=== PATIENT | male | born 1970 | race Two or more races ===

== ENCOUNTER 2023-07-28 13:24 | Emergency (ER) | payer OTHER ==
[~2023-07-28] VITALS: Ht 172.7 cm; Wt 95.5 kg
[2023-07-28 13:27] VITALS: BP 138/91; PULSE 84; RESP 16; TEMP 97.9; O2SAT 97
[2023-07-28] MEDS ORDERED: robaxin (13:27)
[2023-07-28] MEDS ORDERED: albuterol (13:27)
== END 2023-07-28 14:08 | disposition left against medical advice (07) ==
LOC: ER 13:24
DX: R06.89 Other abnormalities of breathing (principal); F41.9 Anxiety disorder, unspecified; I11.0 Hypertensive heart disease with heart failure; I50.9 Heart failure, unspecified; I25.2 Old myocardial infarction; F20.9 Schizophrenia, unspecified; F17.200 Nicotine dependence, unspecified, uncomplicated; Z98.890 Other specified postprocedural states
CPT/HCPCS: 99283; 99406

== ENCOUNTER 2024-02-17 23:01 | Emergency (ER) | payer MEDICAID, OTHER ==
[~2024-02-17] VITALS: Ht 172.7 cm; Wt 91.0 kg
[~2024-02-17 23:01] MED LIST: AMLO10TA80 PO; ASPI-1406 PO; ATOR20TA65 PO; ISOS30TA91 PO; LISI20TA31 PO; METO-396 PO; QUET50TA23 PO; RISP3TAB76 PO
[2024-02-17 23:18] VITALS: O2SAT 95
[2024-02-17 23:38] LABS: BASOPHILS % 0.6 % (0.0-2.0); EOSINOPHILS % 1.1 % (0.0-5.0); HEMATOCRIT. 37.4 % (42.0-52.0); HEMOGLOBIN. 12.2 g/dL (14.0-18.0); LYMPHOCYTES % 12.2 % (20.0-50.0); MEAN CORPUSCULAR HGB CONC 32.7 g/dL (31.0-37.0); MEAN CORPUSCULAR VOLUME 82.4 fL (80.0-94.0); MEAN PLATELET VOLUME 8.3 fl (7.4-10.4); MONOCYTES % 6.4 % (2.0-8.0); NEUTROPHILS % 79.7 % (40.0-76.0); PLATELET 188 x1000/uL (130-400); RED BLOOD CELL COUNT 4.54 mill/uL (4.7-6.1); RED CELL DISTRIBUTION WIDTH 14.3 % (11.6-14.6)
[2024-02-17 23:45] LABS: CHLORIDE 111 mEq/L (98-107); POTASSIUM 3.6 mEq/L (3.5-5.1); SODIUM 142 mEq/L (136-145)
[2024-02-17 23:46] LABS: CARBON DIOXIDE 26 mEq/L (21-32)
[2024-02-17 23:47] LABS: CALCIUM 8.4 mg/dL (8.7-10.4)
[2024-02-17 23:51] LABS: CREATININE 0.9 mg/dL (0.6-1.3); GLUCOSE 103 mg/dL (70-105)
[2024-02-17 23:52] LABS: UREA NITROGEN BLOOD 13 mg/dL (9-23)
[2024-02-17 23:56] LABS: THYROID STIMULATING HORMONE 0.61 uIU/mL (0.55-4.78)
[2024-02-17] MEDS: SODIUM CHLORIDE 0.9% 1,000 ML IV ONE ×2 (23:58)
[2024-02-18 00:06] LABS: ETHANOL BLOOD < 10 mg/dL (<10)
[2024-02-18] MEDS: NALOXONE HCL 1MG/ML 2ML VIAL IV ONE (00:10)
[2024-02-18 02:40] LABS: BG BASE EXCESS -4.6 mmol/L (-2.0-2.0); BG CARBOXYHEMOGLOBIN 2.1 % (0.5-1.5); BG DEOXYHEMOGLOBIN 1.3 % (0.0-5.0); BG FRACTION INSPIRED OXYGEN 36; BG HCO3 ACT 21.1 mmol/L (22.0-26.0); BG METHEMOGLOBIN 0.3 % (0.0-1.5); BG OXYGEN SATURATION 98.7 % (92.0-98.5); BG OXYHEMOGLOBIN 96.3 % (94.0-97.0); BG PCO2 40.9 mmHg (35.0-45.0); BG PO2 123.4 mmHg (75.0-100.0); BG SAMPLE SITE RIGHT RADIAL; BG TOTAL HEMOGLOBIN 13.7 g/dL (12.0-18.0); BG VENT MODE NASAL CANNULA
[2024-02-18 03:20] LABS: CLARITY URINE CLEAR (CLEAR); COLOR URINE YELLOW (YELLOW); GLUCOSE URINE 3+ (NEGATIVE); KETONES URINE NEGATIVE (NEGATIVE); LEUKOCYTE ESTERASE URINE NEGATIVE (NEGATIVE); NITRITE URINE NEGATIVE (NEGATIVE); OCCULT BLOOD URINE NEGATIVE (NEGATIVE); PROTEIN URINE NEGATIVE (NEGATIVE); SPECIFIC GRAVITY URINE 1.015 (1.005-1.030); UROBILINOGEN URINE 0.2 E.U./dL (0.2-1.0)
[2024-02-18 03:21] LABS: *AMPHETAMINES SCREEN URINE PRESUMPTIVE POSITIVE (NEGATIVE); *BARBITURATES SCREEN URINE NEGATIVE (NEGATIVE); *BENZODIAZEPINES SCREEN URINE NEGATIVE (NEGATIVE); *COCAINE SCREEN URINE NEGATIVE (NEGATIVE); CANNABINOID URINE SCREEN NEGATIVE (NEGATIVE); ECSTASY MDMA SCREEN URINE NEGATIVE (NEGATIVE); METHADONE URINE SCREEN NEGATIVE (NEGATIVE); OPIATES URINE SCREEN NEGATIVE (NEGATIVE); PHENCYCLIDINE URINE SCREEN PRESUMTIVE POSITIVE (NEGATIVE)
[2024-02-18 03:43] LABS: BACTERIA URINE NONE SEEN; HYALINE CASTS URINE 0-5 /lpf; RBC URINE 0-2 /hpf (0-2); SQUAMOUS EPITHELIAL CELL URINE RARE /lpf (RARE/1+); WBC URINE 0-2 /hpf (0-2)
[2024-02-18 07:31] VITALS: BP 101/63; PULSE 83; RESP 16
== END 2024-02-18 08:08 | disposition home or self-care (01) ==
LOC: ER 23:01
DX: F19.10 Other psychoactive substance abuse, uncomplicated (principal); F14.90 Cocaine use, unspecified, uncomplicated; R51.9 Headache, unspecified
CPT/HCPCS: 80048; 80329; 80320; 83605; 84443; 85025; 36415; 82805; 82375; 93005; 96361; 96374; 99285; 36600; 80305; 81003; 71045; 70450; J2310; J7030; G0480

== ENCOUNTER 2024-08-06 22:07 | Emergency (ER) | payer MEDICAID ==
[~2024-08-06] VITALS: Ht 167.6 cm; Wt 120.0 kg
[2024-08-06 22:07] VITALS: O2SAT 98
[~2024-08-06 22:07] MED LIST changes: +AMI2 MT; -AMLO10TA80 PO; +APIX2.5T MT; +FAMO-135 MT; +FURO-151 MT; -ISOS30TA91 PO; -LISI20TA31 PO; +LOSA-412 MT; -METO-396 PO; -QUET50TA23 PO; -RISP3TAB76 PO; +SPIR25TA MT
[2024-08-06 22:09] VITALS: BP 146/92; PULSE 92; RESP 20; O2SAT 94
[2024-08-06 22:55] LABS: BASOPHILS % 0.6 % (0.0-2.0); EOSINOPHILS % 0.5 % (0.0-5.0); HEMATOCRIT. 41.1 % (42.0-52.0); LYMPHOCYTES % 15.3 % (20.0-50.0); MEAN CORPUSCULAR HGB CONC 31.7 g/dL (31.0-37.0); MEAN CORPUSCULAR VOLUME 85.4 fL (80.0-94.0); MEAN PLATELET VOLUME 9.3 fl (7.4-10.4); MONOCYTES % 8.2 % (2.0-8.0); NEUTROPHILS % 75.4 % (40.0-76.0); PLATELET 194 x1000/uL (130-400); RED BLOOD CELL COUNT 4.81 mill/uL (4.7-6.1); RED CELL DISTRIBUTION WIDTH 14.7 % (11.6-14.6); WHITE BLOOD COUNT 8.7 x1000/uL (4.5-11.0)
[2024-08-06 22:58] LABS: CHLORIDE 108 mEq/L (98-107); SODIUM 144 mEq/L (136-145)
[2024-08-06 22:59] LABS: CARBON DIOXIDE 29 mEq/L (21-32)
[2024-08-06 23:00] LABS: CALCIUM 9.6 mg/dL (8.7-10.4)
[2024-08-06 23:01] LABS: PROTHROMBIN TIME 11.4 sec (9.6-11.0)
[2024-08-06 23:04] LABS: CREATININE 1.4 mg/dL (0.6-1.3); GLUCOSE 92 mg/dL (70-105); UREA NITROGEN BLOOD 18 mg/dL (9-23)
[2024-08-06 23:05] LABS: TROPONIN I HIGH SENSITIVITY 45 ng/L (3.0-53)
[2024-08-06 23:06] LABS: ETHANOL BLOOD < 10 mg/dL (<10)
== END 2024-08-06 22:40 | disposition left against medical advice (07) ==
LOC: ER 22:07
DX: R07.9 Chest pain, unspecified (principal); E78.00 Pure hypercholesterolemia, unspecified; F17.200 Nicotine dependence, unspecified, uncomplicated; I11.0 Hypertensive heart disease with heart failure; I25.2 Old myocardial infarction; F10.90 Alcohol use, unspecified, uncomplicated; F15.99 Other stimulant use, unspecified with unspecified stimulant-induced disorder; I50.9 Heart failure, unspecified; Z59.01 Sheltered homelessness; Z79.01 Long term (current) use of anticoagulants; Z79.82 Long term (current) use of aspirin; Z79.899 Other long term (current) drug therapy; Y90.9 Presence of alcohol in blood, level not specified
CPT/HCPCS: 36415; 80048; 80320; 83880; 84484; 85025; 93005; 99284; G0480

== ENCOUNTER 2024-08-11 19:27 | Emergency (ER) | payer MEDICAID ==
[~2024-08-11] VITALS: Ht 177.8 cm; Wt 100.0 kg
[2024-08-11 19:32] VITALS: TEMP 98.6; O2SAT 93
[2024-08-11 20:30] LABS: BASOPHILS % 0.6 % (0.0-2.0); EOSINOPHILS % 1.1 % (0.0-5.0); HEMOGLOBIN. 12.5 g/dL (14.0-18.0); LYMPHOCYTES % 12.8 % (20.0-50.0); MEAN CORPUSCULAR HEMOGLOBIN 27.1 pg (28.0-32.0); MEAN CORPUSCULAR HGB CONC 31.9 g/dL (31.0-37.0); MEAN CORPUSCULAR VOLUME 84.7 fL (80.0-94.0); MEAN PLATELET VOLUME 8.7 fl (7.4-10.4); MONOCYTES % 7.2 % (2.0-8.0); NEUTROPHILS % 78.3 % (40.0-76.0); PLATELET 179 x1000/uL (130-400); RED BLOOD CELL COUNT 4.61 mill/uL (4.7-6.1); RED CELL DISTRIBUTION WIDTH 14.1 % (11.6-14.6); WHITE BLOOD COUNT 8.6 x1000/uL (4.5-11.0)
[2024-08-11 20:35] LABS: CHLORIDE 106 mEq/L (98-107); SODIUM 140 mEq/L (136-145)
[2024-08-11 20:36] LABS: CARBON DIOXIDE 30 mEq/L (21-32)
[2024-08-11 20:37] LABS: CALCIUM 9.2 mg/dL (8.7-10.4)
[2024-08-11 20:40] LABS: PARTIAL THROMBOPLASTIN TIME 26.8 sec (23.4-31.0); PROTHROMBIN TIME 11.4 sec (9.6-11.0)
[2024-08-11 20:41] LABS: GLUCOSE 114 mg/dL (70-105); UREA NITROGEN BLOOD 11 mg/dL (9-23)
[2024-08-11 20:42] VITALS: BP 127/81; PULSE 62; RESP 16; O2SAT 95
[2024-08-11 20:44] LABS: TROPONIN I HIGH SENSITIVITY 18 ng/L (3.0-53)
[2024-08-11] MEDS: ONDANSETRON HCL 4MG/2ML INJ IV ONE (21:39)
== END 2024-08-11 22:08 | disposition home or self-care (01) ==
LOC: ER 19:27 → EDBEDREQ 22:11 → EDBEDREQTM 22:11 → CANBEDREQ 08-12 00:35
DX: R07.9 Chest pain, unspecified (principal); I11.0 Hypertensive heart disease with heart failure; F19.10 Other psychoactive substance abuse, uncomplicated; I25.10 Atherosclerotic heart disease of native coronary artery without angina pectoris; I50.9 Heart failure, unspecified; J18.9 Pneumonia, unspecified organism; Z79.01 Long term (current) use of anticoagulants; Z79.82 Long term (current) use of aspirin; Z79.899 Other long term (current) drug therapy
CPT/HCPCS: 80048; 83880; 85025; 85610; 85730; 84484; 36415; 71045; 93005; 99291; Z7610

== ENCOUNTER 2024-08-30 13:09 | Emergency (ER) | payer MEDICAID ==
[~2024-08-30] VITALS: Ht 170.2 cm; Wt 80.0 kg
[2024-08-30 13:12] VITALS: BP 129/87; PULSE 83; RESP 16; O2SAT 97
[2024-09-02] MEDS ORDERED: FURO40TA5 PO (16:31)
[2024-09-02] MEDS ORDERED: DOXY100C5 PO (16:31)
[2024-09-02] MEDS ORDERED: ASPI-1406 PO (16:31)
[2024-09-02] MEDS ORDERED: METO25TA6 PO (16:31)
[2024-09-02] MEDS ORDERED: APIX5TAB PO (16:31)
[2024-09-02] MEDS ORDERED: SERT25TA74 PO (16:31)
[2024-09-02] MEDS ORDERED: AMLO10TA80 PO (16:31)
[2024-09-02] MEDS ORDERED: QUET25TA PO (16:31)
[2024-09-02] MEDS ORDERED: SPIR25TA PO (16:31)
== END 2024-08-30 18:30 | disposition left against medical advice (07) ==
LOC: ER 13:09
DX: M79.10 Myalgia, unspecified site (principal); E78.00 Pure hypercholesterolemia, unspecified; I11.0 Hypertensive heart disease with heart failure; I50.9 Heart failure, unspecified; I25.2 Old myocardial infarction; Z79.899 Other long term (current) drug therapy; Z79.82 Long term (current) use of aspirin; Z79.01 Long term (current) use of anticoagulants
CPT/HCPCS: 93005; 99283

== ENCOUNTER 2024-09-07 22:29 | Emergency (ER) | payer MEDICAID ==
[~2024-09-07] VITALS: Ht 175.3 cm; Wt 90.0 kg
[~2024-09-07 22:29] MED LIST changes: -AMI2 MT; +AMLO10TA80 PO; -APIX2.5T MT; +APIX5TAB PO; -ATOR20TA65 PO; +DOXY100C5 PO; -FAMO-135 MT; -FURO-151 MT; +FURO40TA5 PO; -LOSA-412 MT; +METO25TA6 PO; +QUET25TA PO; +SERT25TA74 PO; -SPIR25TA MT; +SPIR25TA PO
[2024-09-07 22:30] VITALS: BP 133/78; PULSE 90; RESP 16; TEMP 98.4; O2SAT 98
[2024-09-07] MEDS ORDERED: SODIUM CHLORIDE 0.9% 1,000 ML IV ONE (22:45)
[2024-09-08 00:05] LABS: BASOPHILS % 1.1 % (0.0-2.0); EOSINOPHILS % 2.5 % (0.0-5.0); HEMATOCRIT. 37.6 % (42.0-52.0); HEMOGLOBIN. 12.2 g/dL (14.0-18.0); LYMPHOCYTES % 19.8 % (20.0-50.0); MEAN CORPUSCULAR HGB CONC 32.5 g/dL (31.0-37.0); MEAN CORPUSCULAR VOLUME 83.2 fL (80.0-94.0); MEAN PLATELET VOLUME 8.7 fl (7.4-10.4); MONOCYTES % 8.7 % (2.0-8.0); NEUTROPHILS % 67.9 % (40.0-76.0); PLATELET 242 x1000/uL (130-400); RED BLOOD CELL COUNT 4.52 mill/uL (4.7-6.1); RED CELL DISTRIBUTION WIDTH 13.4 % (11.6-14.6); WHITE BLOOD COUNT 8.3 x1000/uL (4.5-11.0)
[2024-09-08 00:06] LABS: CHLORIDE 108 mEq/L (98-107); POTASSIUM 3.7 mEq/L (3.5-5.1); SODIUM 141 mEq/L (136-145)
[2024-09-08 00:07] LABS: CARBON DIOXIDE 23 mEq/L (21-32)
[2024-09-08 00:08] LABS: CALCIUM 9.3 mg/dL (8.7-10.4)
[2024-09-08 00:13] LABS: CREATININE 1.1 mg/dL (0.6-1.3); GLUCOSE 100 mg/dL (70-105); UREA NITROGEN BLOOD 24 mg/dL (9-23)
[2024-09-08 00:14] LABS: ACETAMINOPHEN < 2 ug/mL (10-30)
[2024-09-08 00:17] LABS: ETHANOL BLOOD < 10 mg/dL (<10)
== END 2024-09-08 04:11 | disposition home or self-care (01) ==
LOC: ER 22:29
DX: R53.83 Other fatigue (principal); Z59.00 Homelessness unspecified; I48.91 Unspecified atrial fibrillation; Z79.01 Long term (current) use of anticoagulants; Z79.82 Long term (current) use of aspirin; Z79.899 Other long term (current) drug therapy
CPT/HCPCS: 80048; 80307; 80329; 80320; 82962; 85025; 36415; 99284; 70450; J7030; Z7610; G0480

== ENCOUNTER 2024-12-11 01:28 | Emergency (ER) | payer MEDICAID ==
[~2024-12-11] VITALS: Ht 172.7 cm; Wt 100.0 kg
[2024-12-11 01:32] VITALS: O2SAT 98
[2024-12-11 02:23] LABS: BASOPHILS % 0.4 % (0.0-2.0); EOSINOPHILS % 1.7 % (0.0-5.0); HEMATOCRIT. 39.3 % (42.0-52.0); HEMOGLOBIN. 12.6 g/dL (14.0-18.0); LYMPHOCYTES % 13.2 % (20.0-50.0); MEAN CORPUSCULAR HEMOGLOBIN 26.1 pg (28.0-32.0); MEAN CORPUSCULAR HGB CONC 32.2 g/dL (31.0-37.0); MEAN CORPUSCULAR VOLUME 81.1 fL (80.0-94.0); MEAN PLATELET VOLUME 8.7 fl (7.4-10.4); MONOCYTES % 9.5 % (2.0-8.0); NEUTROPHILS % 75.2 % (40.0-76.0); PLATELET 185 x1000/uL (130-400); RED BLOOD CELL COUNT 4.85 mill/uL (4.7-6.1); RED CELL DISTRIBUTION WIDTH 13.8 % (11.6-14.6); WHITE BLOOD COUNT 9.3 x1000/uL (4.5-11.0)
[2024-12-11 02:29] LABS: CHLORIDE 109 mEq/L (98-107); POTASSIUM 3.7 mEq/L (3.5-5.1); SODIUM 142 mEq/L (136-145)
[2024-12-11 02:30] LABS: CALCIUM 9.1 mg/dL (8.7-10.4); CARBON DIOXIDE 26 mEq/L (21-32)
[2024-12-11 02:35] LABS: CREATININE 1.1 mg/dL (0.6-1.3); GLUCOSE 92 mg/dL (70-105); UREA NITROGEN BLOOD 19 mg/dL (9-23)
[2024-12-11 02:44] LABS: TROPONIN I HIGH SENSITIVITY 81 ng/L (3.0-53)
[2024-12-11 02:55] LABS: INR 1.1; PARTIAL THROMBOPLASTIN TIME 27.9 sec (23.4-31.0); PROTHROMBIN TIME 11.8 sec (9.6-11.0)
[2024-12-11 03:23] VITALS: O2SAT 100
[2024-12-11] MEDS ORDERED: ONDANSETRON HCL 4MG/2ML INJ IV PRN (03:45)
[2024-12-11] MEDS ORDERED: DOCUSATE SODIUM 100MG CAPSULE PO PRN (03:45)
[2024-12-11] MEDS ORDERED: ZOLPIDEM TARTRATE 5MG TABLET PO PRN (03:45)
[2024-12-11] MEDS ORDERED: CLONIDINE 0.1MG TABLET PO PRN (03:45)
[2024-12-11] MEDS ORDERED: ACETAMINOPHEN 325MG TABLET PO PRN ×2 (03:45)
[2024-12-11] MEDS ORDERED: IPRATROPIUM/ALBUTEROL 0.5-3(2.5)MG/3ML NEB HHN PRN (03:45)
[2024-12-11] MEDS ORDERED: MAGNESIUM/ALUMINUM HYDROXIDE/SIMETHICONE 30ML UDC PO PRN (03:45)
[2024-12-11] MEDS ORDERED: GUAIFENESIN 200MG/10ML SUGAR FREE UDC PO PRN (03:45)
[2024-12-11] MEDS ORDERED: ENOXAPARIN 100MG/ML SYR SUBCUT SCH (04:00)
[2024-12-11 04:12] LABS: IRON 46 ug/dL (65-175)
[2024-12-11 04:14] LABS: ALANINE AMINOTRANSFERASE 17 IU/L (10-49); ALBUMIN 4.2 g/dL (3.2-4.8); ASPARTATE AMINOTRANSFERASE 19 IU/L (<34); BILIRUBIN DIRECT 0.2 mg/dL (<=3.0)
[2024-12-11 04:15] LABS: BILIRUBIN TOTAL 0.6 mg/dL (0.1-1.0); PROTEIN TOTAL 6.8 g/dL (6.0-8.3); TOTAL IRON BINDING CAPACITY 182 ug/dl (250-425)
[2024-12-11 04:20] VITALS: BP 125/76; PULSE 84; RESP 12; TEMP 36.7
[2024-12-11] MEDS ORDERED: PANTOPRAZOLE SODIUM 40 MG/VIAL IV SCH (09:00)
== END 2024-12-11 04:25 | disposition admitted as inpatient to this hospital (09) ==
LOC: ER 01:28 → EDBEDREQTM 02:51 → EDBEDREQ 02:51 → ER 04:25
DX: I21.4 Non-ST elevation (NSTEMI) myocardial infarction (principal); I25.10 Atherosclerotic heart disease of native coronary artery without angina pectoris; R07.89 Other chest pain; F17.210 Nicotine dependence, cigarettes, uncomplicated; I11.0 Hypertensive heart disease with heart failure; Z79.01 Long term (current) use of anticoagulants; Z79.82 Long term (current) use of aspirin; Z79.899 Other long term (current) drug therapy; Z95.5 Presence of coronary angioplasty implant and graft
CPT/HCPCS: 36415; 71045; 80048; 80076; 82728; 83036; 83540; 83550; 83735; 83880; 84100; 84484; 85025; 86850; 86900; 93005; 99291